=== PATIENT | female | born 1985 | race Caucasian/White ===

== ENCOUNTER 2016-07-07 09:30 | Emergency (ER) | payer BC ==
[2016-07-07 09:40] VITALS: BP 153/89
--- NOTE | 2016-07-07 09:41 | EDM.PDOC ---
ED HPI GENERAL MEDICAL PROBLEM - General Chief Complaint: General Stated Complaint: FLU Time Seen by Provider: 07/07/16 09:36 Source of Information: Reports: Patient, RN, RN notes reviewed History Limitations: Reports: No limitations - History of Present Illness INITIAL COMMENTS - FREE TEXT/NARRATIVE: Patient presents to the ED at [facility] with URI, body aches, fever, and chills. Patient states her symptoms began a couple days ago. She has not tried any OTC medications for her symptoms. Close family members have been sick with similar symptoms. Patient states she is trying to stay well hydrated with good PO intake. 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 Denies: weakness HEENT: Reports: Ear pain, Eye pain, Rhinitis, Sinus problem, Throat pain Respiratory: Reports: cough. Denies: shortness of breath Cardiovascular: Denies: Chest pain, Palpitations GI/Abdominal: Reports: Nausea. Denies: Abdominal pain, Diarrhea, Vomiting Skin: Reports: no symptoms Neurological: Denies: dizziness, headache ED EXAM, GENERAL - Physical Exam Exam: See Below Exam Limited By: No limitations General Appearance: alert, no apparent distress, obese Eye Exam: bilateral eye: EOMI, normal inspection, PERRL Ears: normal external exam, normal canal, hearing grossly normal, normal TMs Ear Exam: bilateral ear: TM normal Nose: clear rhinorrhea Throat/Mouth: Other (Pharyngeal erythema) Neck: supple Respiratory/Chest: no respiratory distress, lungs clear, normal breath sounds Cardiovascular: regular rate, rhythm GI/Abdominal: normal bowel sounds, soft, non tender, abnormal bowel sounds: ( hyperactive) Neurological: alert Skin Exam: Warm, Dry, Intact, Normal color, No rash Course - Vital Signs Last Recorded V/S: Last Vital Signs Temp 38.0 C 07/07/16 09:30 Pulse 127 H 07/07/16 09:30 Resp 18 07/07/16 09:30 BP 153/89 H 07/07/16 09:30 Pulse Ox 98 07/07/16 09:30 - Orders/Labs/Meds Orders: Active Orders 24 hr Category Date Time Status CULTURE STREP A CONFIRMATION [] Stat Lab 07/07/16 10:14 Results STREP SCRN A RAPID W CULT CONF [] Stat Lab 07/07/16 10:14 Results Sodium Chloride 0.9% [Normal Saline] 1,000 ml Med 07/07/16 10:00 Active IV ASDIRECTED Sodium Chloride 0.9% [Saline Flush] Med 07/07/16 09:47 Active 10 ml FLUSH ASDIRECTED PRN Peripheral IV Insertion Adult [OM.PC] Routine Oth 07/07/16 09:47 Ordered Medication Orders Sodium Chloride (Normal Saline) 1,000 mls @ 999 mls/hr IV ASDIRECTED [facility] Last Admin: 07/07/16 10:03 Dose: 999 mls/hr Sodium Chloride (Saline Flush) 10 ml FLUSH ASDIRECTED PRN PRN Reason: Keep Vein Open Labs: Laboratory Tests 07/07/16 07/07/16 Range/Units 10:11 10:11 WBC 4.8 (4.0-10.0) x10^3/uL RBC 4.73 (4.00-5.50) x10^6/uL Hgb 14.0 (12.0-16.0) g/dL Hct 40.7 (33.0-47.0) % MCV 86.0 (78.0-93.0) fL MCH 29.6 (26.0-32.0) pg MCHC 34.4 (32.0-36.0) g/dL RDW Coeff of Harris 12.8 (10.0-15.0) % Plt Count 165 (130-400) x10^3/uL Neut % (Auto) 79.0 (50.0-80.0) % Lymph % (Auto) 10.9 L (25.0-50.0) % Eddy % (Auto) 8.6 (2.0-11.0) % Eos % (Auto) 1.1 (0.0-4.0) % Baso % (Auto) 0.4 (0.2-1.2) % Sodium 138 (136-145) mmol/L Potassium 3.6 (3.5-5.1) mmol/L Chloride 106 (98-107) mmol/L Carbon Dioxide 24 (21-32) mmol/L BUN 7 (7-18) mg/dL Creatinine 0.8 (0.55-1.02) mg/dL Est Cr Clr Drug Dosing TNP Estimated GFR (MDRD) > 60 Glucose 141 H (74-106) mg/dL Calcium 8.4 L (8.5-10.1) mg/dL Meds: Medications Generic Name Dose Route Start Last Admin Trade Name Freq PRN Reason Stop Dose Admin Sodium Chloride 1,000 mls @ 999 mls/hr 07/07/16 10:00 07/07/16 10:03 Normal Saline IV 999 mls/hr ASDIRECTED JINNY Administration Sodium Chloride 10 ml 07/07/16 09:47 Saline Flush FLUSH ASDIRECTED PRN Keep Vein Open Discontinued Medications Generic Name Dose Route Start Last Admin Trade Name Freq PRN Reason Stop Dose Admin Methylprednisolone Sodium Succinate 125 mg 07/07/16 09:48 07/07/16 10:06 Solu-Medrol IVPUSH 07/07/16 09:49 125 mg ONETIME ONE Administration Ondansetron HCl 4 mg 07/07/16 09:47 07/07/16 10:03 Zofran IVPUSH 07/07/16 09:48 4 mg ONETIME ONE Administration Departure - Departure Time of Disposition: 10:43 Disposition: Home, Self-Care 01 Clinical Impression: Viral upper respiratory illness, Body aches Fever Qualifiers: Fever type: unspecified Qualified Code(s): R50.9 - Fever, unspecified Instructions: Upper Respiratory Infection, Adult, Fever, Adult Forms: ED Department Discharge Additional Instructions: 1. Stay well hydrated and rest 2. Alternate Tylenol/Advil 3. Take medications for the full coarse, even if you are feeling better 4. Warm salt-water gargles to help with throat soreness and dryness - Problem List Review Problem List Initiated/Reviewed/Updated: Yes - My Orders Last 24 Hours: My Active Orders 07/07/16 09:47 Sodium Chloride 0.9% [Saline Flush] 10 ml FLUSH ASDIRECTED PRN Peripheral IV Insertion Adult [OM.PC] Routine 07/07/16 10:00 Sodium Chloride 0.9% [Normal Saline] 1,000 ml IV ASDIRECTED 07/07/16 10:14 CULTURE STREP A CONFIRMATION [RM] Stat STREP SCRN A RAPID W CULT CONF [RM] Stat - Assessment/Plan Last 24 Hours: My Active Orders 07/07/16 09:47 Sodium Chloride 0.9% [Saline Flush] 10 ml FLUSH ASDIRECTED PRN Peripheral IV Insertion Adult [OM.PC] Routine 07/07/16 10:00 Sodium Chloride 0.9% [Normal Saline] 1,000 ml IV ASDIRECTED 07/07/16 10:14 CULTURE STREP A CONFIRMATION [RM] Stat STREP SCRN A RAPID W CULT CONF [RM] Stat
[2016-07-07] MEDS ORDERED: Ondansetron 4 MG/2 ML SDV IVPUSH ONE (09:47)
[2016-07-07] MEDS ORDERED: Sodium Chloride 0.9% 10 ML Syringe FLUSH PRN (09:47)
[2016-07-07] MEDS ORDERED: methylPREDNISolone Sodium Succinate 125 MG/2 ML SDV IVPUSH ONE (09:48)
[2016-07-07] MEDS ORDERED: Sodium Chloride 0.9% 1,000 ML IV SCH (10:00)
[2016-07-07 10:31] LABS: CHLORIDE,CL 106 mmol/L (98-107); SODIUM,NA 138 mmol/L (136-145)
== END 2016-07-07 11:00 | disposition home or self-care (01) ==
LOC: VM.ED 09:30
DX: J39.9 Disease of upper respiratory tract, unspecified (principal); Z88.1 Allergy status to other antibiotic agents; Z88.8 Allergy status to other drugs, medicaments and biological substances; Z98.890 Other specified postprocedural states
CPT/HCPCS: 36415; 80048; 85025; 87081; 87804; 87880; 96361; 96374; 96375; 99283; J2405; J2930; J7030

== ENCOUNTER 2017-07-05 18:56 | Emergency (ER) | payer BC ==
[2017-07-05] MEDS ORDERED: Morphine 4 MG/ML Syringe IM ONE (19:17)
--- NOTE | 2017-07-05 19:31 | EDM.PDOC ---
ED HPI GENERAL MEDICAL PROBLEM - General Chief Complaint: Upper Extremity Injury/Pain Stated Complaint: right shoulder pain Time Seen by Provider: 07/05/17 19:10 Source of Information: Reports: Patient History Limitations: Reports: No Limitations - History of Present Illness INITIAL COMMENTS - FREE TEXT/NARRATIVE: Patient presents to the emergency room this evening with complaints of right shoulder pain. She reports she fell and injured it a couple weeks ago and was just seen this last by Dr. Abdul at [facility] here in [place]. X- ray at that time showed a possible bone spur but no fracture. She is complaining of increasingly more pain and she is supposed to be starting physical therapy this coming Friday. She has no complaints regarding headache, shortness of breath, chest pain, abdominal pain, nausea or vomiting, no blood in her urine or stool. Onset Date: 06/21/17 Duration: Getting Worse Location: Reports: Upper Extremity, Right Quality: Reports: Sharp Severity: Moderate Improves with: Reports: Medication Worsens with: Reports: Movement Associated Symptoms: Reports: No Other Symptoms - Related Data Allergies Allergy/AdvReac Type Severity Reaction Status Date / Time clindamycin Allergy Cannot Verified 07/05/17 19:18 Remember levofloxacin [From Levaquin] Allergy Cannot Verified 07/05/17 19:18 Remember Home Meds: Home Meds Ethinyl Estradiol/Etonogestrel [Nuvaring Vaginal Ring] 1 each VG ASDIRECTED 09/09 [History] methylPREDNISolone [Medrol] 4 mg PO ASDIRECTED #1 dosepk 07/07/16 [Rx] Past Medical History - Past Health History Medical/Surgical History: Denies Medical/Surgical History HEENT History: Reports: Sinusitis [employer] SUPERVISOR History: Reports: - Past Surgical History HEENT Surgical History: Reports: Naso-Sinus Surgery, Tonsillectomy Female Surgical History: Reports: Section Social & Family History - Tobacco Use Smoking Status *Q: Never Smoker Second Hand Smoke Exposure: No - Recreational Drug Use Recreational Drug Use: No Review of Systems - Review of Systems Review Of Systems: See Below Constitutional: Reports: No Symptoms Eyes: Reports: No Symptoms Ears: Reports: No Symptoms Nose: Reports: No Symptoms Mouth/Throat: Reports: No Symptoms Respiratory: Reports: No Symptoms Cardiovascular: Reports: No Symptoms GI/Abdominal: Reports: No Symptoms Genitourinary: Reports: No Symptoms Musculoskeletal: Reports: Shoulder Pain (right shoulder pain) Skin: Reports: No Symptoms Neurological: Reports: No Symptoms Psychiatric: Reports: No Symptoms ED EXAM, GENERAL - Physical Exam Exam: See Below Exam Limited By: No Limitations General Appearance: Alert, WD/WN, No Apparent Distress Eye Exam: Bilateral Eye: EOMI, Normal Inspection, PERRL Ears: Normal TMs Nose: Normal Inspection, Normal Mucosa, No Blood Throat/Mouth: Normal Inspection, Normal Lips, Normal Teeth, Normal Gums, Normal Oropharynx, Normal Voice, No Airway Compromise Head: Atraumatic, Normocephalic Neck: Normal Inspection, Supple, Non-Tender, Full Range of Motion Respiratory/Chest: No Respiratory Distress, Lungs Clear, Normal Breath Sounds, No Accessory Muscle Use, Chest Non-Tender Cardiovascular: Normal Peripheral Pulses, Regular Rate, Rhythm, No Edema, No Gallop, No JVD, No Murmur, No Rub Peripheral Pulses: 2+: Radial (L), Radial (R) GI/Abdominal: Normal Bowel Sounds, Soft, Non-Tender, No Organomegaly, No Distention, No Abnormal Bruit, No Mass Extremities: Normal Inspection, Normal Capillary Refill, Arm Pain Course - Orders/Labs/Meds Orders: Active Orders 24 hr Category Date Time Status Shoulder Comp Rt [CR] Stat Exams 07/05/17 19:16 Ordered Departure - Departure Time of Disposition: 19:58 Disposition: Home, Self-Care 01 Condition: Good Clinical Impression: Shoulder fracture, right - Discharge Information Instructions: Shoulder Pain, [id number], Shoulder Sprain Forms: ED Department Discharge Additional Instructions: Your x-ray does show a calcification that could indicate an avulsion fracture. Due to your sever pain, this may be the case, as well as some soft tissue injury such as ligament damage. Follow up with Dr. Escalante and she will have access to the films. An MRI may be needed to rule out any soft tissue damage. Keep your physical therapy appointment if your pain is under control. Please keep the arm elevated, apply ice, and alternate ibuprofen with the hydrocodone. Please call us with any questions or concerns in the meantime. - Problem List & Annotations (1) Sprain of shoulder, right SNOMED Code(s): 8344058 Code(s): S43.401A - UNSPECIFIED SPRAIN OF RIGHT SHOULDER JOINT, INIT ENCNTR Status: Acute Priority: Low Current Visit: Yes Qualifiers: Encounter type: initial encounter Shoulder sprain type: unspecified sprain Qualified Code(s): S43.401A - Unspecified sprain of right shoulder joint, initial encounter (2) Shoulder fracture, right SNOMED Code(s): 26702414 Code(s): S42.91XA - FRACTURE OF RIGHT SHOULDER GIRDLE, PART UNSP, INIT Status: Acute Priority: Low Current Visit: Yes Qualifiers: Encounter type: initial encounter Fracture type: closed Qualified Code(s) : S42.91XA - Fracture of right shoulder girdle, part unspecified, initial encounter for closed fracture - Problem List Review Problem List Initiated/Reviewed/Updated: Yes - My Orders Last 24 Hours: My Active Orders 07/05/17 19:16 Shoulder Comp Rt [CR] Stat - Assessment/Plan Last 24 Hours: My Active Orders 07/05/17 19:16 Shoulder Comp Rt [CR] Stat Assessment:: shoulder sprain, right possible avulsion fracture to the greater tuberosity Plan: Your x-ray does show a calcification that could indicate an avulsion fracture. Due to your sever pain, this may be the case, as well as some soft tissue injury such as ligament damage. Follow up with Dr. Escalante and she will have access to the films. An MRI may be needed to rule out any soft tissue damage. Keep your physical therapy appointment if your pain is under control. Please keep the arm elevated, apply ice, and alternate ibuprofen with the hydrocodone. Please call us with any questions or concerns in the meantime.
[2017-07-05] MEDS ORDERED: Take Home: Acetaminophen/HYDROcodone 325-10 MG, 5 Tab Pack PO ONE (19:34)
[2017-07-05 19:36] VITALS: BP 146/90
== END 2017-07-05 20:05 | disposition home or self-care (01) ==
LOC: VM.ED 18:56
DX: S42.91XA Fracture of right shoulder girdle, part unspecified, initial encounter for closed fracture (principal); Z88.1 Allergy status to other antibiotic agents; W19.XXXA Unspecified fall, initial encounter
CPT/HCPCS: 73030; 96372; 99283; A9270; J2270